=== PATIENT | female | born 1940 | race Caucasian/White ===

== ENCOUNTER 2016-11-22 06:41 | Outpatient (CLI) | payer MEDICARE, BC ==
--- NOTE | ~2016-11-22 | HEMODYNAMI ---
PATIENT:VIRGINIA CHAMBERS MEDICAL RECORD: [id number] : 42 LOCATION:[facility] ADMISSION DATE: 11/22/16 Generatedon:11/22/201610:02 Patient name: VIRGINIA CHAMBERS Patient #: [id number] SSN: : 1940 Date of study: 11/22/2016 Page: Of Hemodynamic Procedure Report Patient Data Patient Demographics Procedure consent was obtained First Name: VIRGINIA Gender: Female Last Name: REYES : 1940 [facility] Initial: DENILSON Age: 76 year(s) Patient #: [id number] Race: Unknown Additional ID: [id number] Contact details [address]: [address] [place] [address] State: [place] City: [place] Zip code: [address] Admission Admission Data Admission Date: 11/22/2016 Admission Time: 6:41 Procedure Procedure Types Cath Procedure Peripheral Cath Diagnostic Procedure Abd/Extremity Extremities Bilat Lower Extremity Procedure Description Procedure Date Procedure Date: 11/22/2016 Procedure Start Time: 9:22 Procedure Staff Name Function Julissa Noble RT Scrub Pawan Salamanca RT Monitor Tana Fernandez RN Nurse Hawa Sanz RN Nurse Carlyle Edge MD Performing Physician Procedure Data Cath Procedure Fluoroscopy Diagnostic fluoroscopy Total fluoroscopy Time: 2.7 time: 2.7 min min Diagnostic fluoroscopy Total fluoroscopy dose: 342 dose: 342 mGy mGy Contrast Material Contrast Material Type Amount (ml) Isovue 300 135 Entry Location Entry Primary Successful Side Size Upsize Upsize Entry Closure Succes sful Closure Location (Fr) 1 (Fr) 2 (Fr) Remarks Device Remarks Femoral Right 5 Fr Exoseal artery Diagnostic catheters Device Type Used For End Catheter Placement Merit ULTRA BOLUS FLUSH 5Fr 65CM catheter Procedure Medications Medication Administration Route Dosage Versed I.V. 0.5 mg Fentanyl 25 mcg Zofran I.V. 4 mg Hemodynamics Rest Heart Rate: 69 (bpm) Snapshots Pre Cath Intra NCS Post Cath Vital Signs Time Heart Resp SPO2 NIBP (mmHg) Rhythm Pain Sedation Rate (ipm) (%) Status Level (bpm) 8:57:28 81 18 92 120/65(96) NSR 0 (11) 10(A) , No pain 9:02:27 69 21 Auto NIBP NSR 0 (11) 10(A) off , No pain 9:07:26 70 21 76 Auto NIBP NSR 0 (11) 10(A) off , No pain 9:09:54 69 19 84 124/68(93) NSR 0 (11) 10(A) , No pain 9:14:53 85 17 86 Auto NIBP NSR 0 (11) 10(A) off , No pain 9:18:12 71 16 81 140/72(116) NSR 0 (11) 10(A) , No pain 9:23:11 66 12 Auto NIBP NSR 0 (11) 10(A) off , No pain 9:26:54 68 13 124/60(104) NSR 0 (11) 10(A) , No pain 9:31:53 67 12 Auto NIBP NSR 0 (11) 10(A) off , No pain 9:36:11 67 9 96 122/70(96) NSR 0 (11) 10(A) , No pain 9:41:10 67 23 81 Auto NIBP NSR 0 (11) 10(A) off , No pain 9:42:24 69 28 81 118/66(96) NSR 0 (11) 10(A) , No pain 9:47:23 68 28 Auto NIBP NSR 0 (11) 10(A) off , No pain 9:51:16 68 21 15 130/68(113) NSR 0 (11) 10(A) , No pain 9:56:15 67 13 Auto NIBP NSR 0 (11) 10(A) off , No pain 10:01:14 67 13 Auto NIBP NSR 0 (11) 10(A) off , No pain Medications Time Medication Route Dose Verified Delivered Reason Notes Effectivenes s by by 9:29:43 Versed I.V. 0.5 Carlyle Shaikh for mg Yvon Edge RN sedation 9:29:58 Fentanyl 25 Carlyle hSaikh for mcg Yvon Edge RN sedation 9:38:43 Zofran I.V. 4 mg Yvon Scott RN sedation MD Procedure Log Time Note 8:39:33 Pawan Salamanca RT (R) (CV) sent for patient. Start room use. 8:39:54 Time tracking: Regular hours 8:39:58 Plan of Care:Hemodynamics will remain stable., Cardiac rhythm will remain stable.. 8:40:06 Plan of Care:Hemodynamics will remain stable., Cardiac rhythm will remain stable., Comfort level will be maintained., Respiratory function will remain adequate., Patient/ family verbilizes understanding of procedure., Procedure tolerated without complication., Recovers from procedure without complications.. 8:40:30 Patient received from Outpatients to IR Alert and oriented. Tansferred to table in Supine position. 8:40:31 Correct patient and procedure confirmed by team. 8:40:35 Signed procedure consent form obtained from patient. 8:40:36 ECG and BP/O2 sat monitors applied to patient. 8:40:38 Full Disclosure recording started 8:40:39 - 8:40:47 H&P Date Dictated: 11/22/2016 H&P Addendum completed by physician on da y of procedure. (MUST COMPLETE FOR ALL OUTPATIENTS). 8:40:49 Pre-op teaching completed and patient verbalized understanding. 8:40:50 Pre-procedure instructions explained to patient. 8:40:55 Family in waiting room. 8:41:01 Patient NPO since Midnight. 8:41:10 Use device set IR Diagnostic 8:41:11 Sterile Angiographic Pack opened to sterile field. 8:41:11 Bag Decanter opened to sterile field. 8:41:12 Acist Manifold opened to sterile field. 8:41:13 Acist Hand Control opened to sterile field. 8:41:13 Acist Syringe opened to sterile field. 8:42:44 Is the patient allergic to Iodine/contrast media? No. 8:42:46 Is patient on blood thinner?No 8:42:59 Patient diabetic? No. 8:43:02 - 8:43:03 ----Pre-sedation anethsthesia assessment.---- 8:43:06 Previous problem with sedation/anesthesia? No ? 8:43:25 Snore? Yes 8:43:27 Sleep apnea? No 8:43:29 Deviated septum? No 8:43:37 Opens mouth fully? Yes 8:43:38 Sticks out tongue? Yes 8:43:41 Airway obstruction? Yes copd 8:43:46 Dentures? No ? 8:43:50 Pre procedure: right dorsailis pedis pulse Doppler 8:43:54 Pre procedure: right posterior tibial pulse Doppler 8:43:57 Pre procedure: right posterior tibial pulse Doppler 8:44:00 Pre procedure: left posterior tibial pulse Doppler 8:44:21 Patient pain scale 0/10 no pain. 8:44:23 Sharps counted by scrub and verified by R.N. 8:44:24 Alarms reviewed by R. N. 8:56:16 Vital chart was started 8:58:06 Baseline sample Acquired. 9:04:56 IV patent on arrival in left forearm with 0.9% NaCl at KVO. 9:05:01 Bilateral groins area was prepped with chlora-prep and draped in steril e fashion 9:21:27 Physician arrived 9::28 --------ALL STOP TIME OUT------ 9::28 Final Timeout: patient, procedure, and site verified with staff and physician. All members of the team are in agreement. 9:21:32 Bilateral groins site verified by team. 9:21:54 Physical assessment completed. ASA score P 3 - A patient with severe systemic disease as per Carlyle Edge MD. 9:21:58 Sedation plan: IV Moderate Sedation Versed, Fentanyl 9:22:11 Procedure started. 9:22:16 Local anesthetic to right femoral artery with Lidocaine 1% by Carlyle Edge MD.INITIAL ACCESS ONLY 9:22:31 A 5 Fr sheath was inserted into the Right Femoral artery 9:23:05 Cook DIAL 260 guide wire opened to sterile field. 9:23:06 TUBING, CONTRAST INJCTN HI PRES opened to sterile field. 9:23:06 Cook DOC .035 guide wire opened to sterile field. 9:23:07 TUBING, CONTRAST INJCTN HI PRES opened to sterile field. 9:23:07 Terumo 5Fr Quentin Sheath opened to sterile field. 9:23:07 Micropuncture VSI 4FR kit opened to sterile field. 9:25:20 A [employer] ULTRA BOLUS FLUSH 5Fr 65CM catheter was advanced over the wire and used for . 9:25:56 Baseline sample Acquired. 9:29:43 Versed 0.5 mg I.V. was administered by Hawa Sanz RN; for sedation; 9:29:58 Fentanyl 25 mcg was administered by Hawa Sanz RN; for sedation; 9:30:17 Terumo ANGLE 260cm glide wire opened to sterile field. 9:31:51 Terumo ANGLE 260cm glide wire opened to sterile field. 9:38:43 Zofran 4 mg I.V. was administered by Haaw Sanz RN; for sedation; 9:50:04 Cordis 5Fr Exoseal opened to sterile field. 9:51:31 Procedure ended.(Physican Out) 9:51:48 Sheath removed intact; hemostasis achieved with Exoseal to the Right Femoral artery. 9:52:03 Fluoroscopy time 02.70 minutes. 9:52:09 Fluoroscopy dose: 342 mGy 9:52:09 Flurop Dose total: 342 9:52:24 Contrast amount:Isovue 300 135ml. 9:55:32 Sharps counted by scrub and verified by R.N. 9:55:33 Insertion/operative site no bleeding no hematoma. 9:55:36 Post-op/insertion site Right Femoral artery dressed using a 4 x 4 and Tegaderm. 9:55:40 Post right femoral artery:stable 9:55:41 Post Procedure Pulses reassessed and unchanged 9:55:46 Post-procedure physical assessment completed. ASA score P 3 - A patient with severe systemic disease as per Carlyle Edge MD. 9:55:49 Post procedure instruction explained to patient.Patient verbalizes understanding. 9:56:54 Procedure and supply charges have been captured, reviewed, submitted an d are correct. 10:02:03 Report given to Outpatients. 10:02:18 Patient transfered to Outpatients with Bed. 10:02:43 Vital chart was stopped Device Usage Item Name Manufacture Quantity Catalog Number Hospital Part Current Min imal Lot# / Charge Number Stock Stock Serial# Code Anurag Parkinson [id number] 5 Angiographic Health Pack Bag Decanter Microtek 1 2002S [id number] 48674 [id number] 5 [employer] Acist Acist 1 73303 918144 485795 382922 5 Manifold [employer] Inc Acist Hand Acist 1 02244 623047 287240 082602 5 Control [employer] Inc Acist Syringe Acist 1 63921 752375 243428 030961 20 [employer] Inc Cook DIAL Cook Medical 1 [id number] 069757 032305 5 [id number] 260 guide wire TUBING, Merit 2 [id number] 645137 071254 5 CONTRAST Medical INJCTN HI PRES Cook DOC .035 Cook Medical 1 [id number] 297398 699192 5 [id number] guide wire Terumo 5Fr Terumo 1 [id number] 282498 209825 969924 40 Quentin Sheath Micropuncture VSI VASCULAR 1 7266V 669421 193521 5 VSI 4FR kit SOLUTIONS Merit ULTRA Merit 1 [id number] [id number] 303807 5 BOLUS FLUSH Medical 5Fr 65CM catheter Terumo ANGLE Terumo 2 [id number] 298532 408250 665870 5 260cm glide wire Cordis 5Fr Cardinal 1 EX500 105369 788570 390984 10 [id number] [facility] Health Signature Audit [place] Stage Time Signature Unsigned Intra-Procedure 11/22/2016 Pawan 10:02:40 AM Cheikh RT (R) (CV) Signatures Monitor : Pawan Signature : Cheikh RT Date : Time : [place] [address]
[~2016-11-22 06:41] MED LIST: ALBUTEROL; CATAPRES0.2 MG PO; DOXEPIN HCL10 MG PO; IMODIUM A-D2 MG; KLONOPIN0.5 MG; LONITEN2.5 MG; LONITEN2.5 MG PO; LOPRESSOR50 MG PO; MOBIC7.5 MG PO; NITROSTAT0.4 MG SL; NORCO 10/325 TA1 TA1 OR; NORVASC5 MG PO; OYSCO 500+D TAB1 TAB PO; PEPCID AC20 MG PO; PHENERGAN25 M1 PO; PROTONIX40 MG PO; PROVENTIL/2.5 MG/3 M NEB; RENAGEL800 MG PO; RENVELA800 MG PO; RESTORIL PO; TESSALON PERLE100 MG PO; ULTRAM50 MG PO; VALIUM5 MG PO
[2016-11-22] MEDS ORDERED: IPRAT-ALBUT 0.5-3 ML UPD (07:14)
[2016-11-22] MEDS ORDERED: ROCALTROL0.5 MCG PO (07:15)
[2016-11-22 07:36] LABS: EOSINOPHILS 3.5 % (0-7); HEMATOCRIT 34.2 % (36.0-48.0); IMMATURE GRANULOCYTES 0.3 % (0-5); LYMPHOCYTES 15.7 % (15-50); MCHC 32.2 g/dL (31.0-37.0); MCV 96.3 fL (80.0-100.0); MEAN PLATELET VOLUME 10.1 fL (7.4-10.4); MONOCYTES 18.9 % (2-11); NEUTROPHILS 60.6 % (40-80); PLATELET COUNT 156 10x3/uL (130-400); RBC 3.55 10x6/uL (4.00-5.40); RDW 17.8 % (11.5-14.5); WBC 3.1 10x3/uL (4.8-10.8)
[2016-11-22 07:41] LABS: APTT 34.7 SECONDS (22.8-39.4); INR 1.26 (0.85-1.17); PROTIME 15.7 SECONDS (11.6-15.0)
[2016-11-22 07:42] LABS: ANION GAP 13.3 mmol/L (8-16); CALCIUM 9.2 mg/dL (8.5-10.1); CARBON DIOXIDE 28.3 mmol/L (21.0-32.0); POTASSIUM - SERUM 3.6 mmol/L (3.5-5.1)
[2016-11-22 07:52] VITALS: BP 110/59; BMI 19.9
--- NOTE | 2016-11-22 10:15 | NUR ---
PT REC'D TO ROOM VIA STRETCHER. AWAKE, ORIENTED. DRESSING TO RIGHT GROIN C/D/I. PEDAL PULSE OBTAINED VIA DOPPLER.
--- NOTE | 2016-11-22 10:45 | NUR ---
ICE APPLIED TO RIGHT GROIN AREA PER ORDER. COFFEE PROVIDED.
--- NOTE | 2016-11-22 10:49 | NUR ---
SEE FREQUENT VITAL SIGN SHEET FOR VITALS.
--- NOTE | 2016-11-22 11:05 | NUR ---
REG DIET PROVIDED.
--- NOTE | 2016-11-22 12:30 | NUR ---
PEDAL PULSE NOTED WITH DOPPLER.
--- NOTE | 2016-11-22 13:00 | NUR ---
IV D/C'D CATH INTACT.
--- NOTE | 2016-11-22 13:30 | NUR ---
D/C INSTRUCTIONS EXPLAINED TO PT AND FAMILY MEMBER. VOICED UNDERSTANDING. COPIES OF ALL GIVEN TO PT. DRESSING TO RIGHT GROIN REMAINS C/D/I.
== END 2016-11-22 13:30 | disposition home or self-care (01) ==
LOC: D.OPS 06:41 → D.RAD 09:00 → D.OPS 13:30
PROVIDERS: General Practice
DX: I70.249 Atherosclerosis of native arteries of left leg with ulceration of unspecified site (principal); L97.929 Non-pressure chronic ulcer of unspecified part of left lower leg with unspecified severity; I70.201 Unspecified atherosclerosis of native arteries of extremities, right leg; N18.9 Chronic kidney disease, unspecified; Z99.2 Dependence on renal dialysis; Z01.812 Encounter for preprocedural laboratory examination